=== PATIENT | male | born 1990 | race Caucasian/White ===

== ENCOUNTER 2018-05-28 09:15 | Emergency (ER) | payer SELFPAY ==
[2018-05-28 09:37] VITALS: BP 128/68
--- NOTE | 2018-05-28 09:40 | EDPHY ---
H & P Time Seen by Provider: 05/28/18 09:21 HPI/ROS: CHIEF COMPLAINT: Right hand pain post punching a dumpster HISTORY OF PRESENT ILLNESS: 28-year-old [id number] male with prior remote history of right radius ORIF states that he punched a dumpster last evening. Now complaining of right 5th metacarpal pain, swelling, violaceous discoloration. No paresthesia. No sensory motor deficit. Denies punching a person. PHYSICAL EXAM (Prior to examination, patient consented to physical exam, hands were washed and my usual and customary physical exam procedures followed) 1) GENERAL: Well-developed, well-nourished, alert and oriented. Appears to be in no acute distress. 2) HEAD: Normocephalic 3) HEENT: Pupils equal, round, reactive to light bilaterally. 4) LUNGS: Breathing comfortably. 5) MUSCULOSKELETAL: Tender to palpation 4th and 5th metacarpal with ecchymotic discoloration noted. No deformity no angulation. Normal cascading of digits. Soft compartments. Normal coloration. 6) SKIN: Intact. No evidence of fight bite injury . No tenting of skin 7) VASCULAR: pulses and cap refill present are brisk 8) NEUROLOGIC: Radial, ulnar, median nerve function intact with no deficits appreciated on exam DIFFERENTIAL DIAGNOSIS: in no particular order including but not limited to fracture, sprain, compartment syndrome Xray of the right hand and wrist interpreted by myself: 5th metacarpal fracture Procedure: Splint An Ortho Glass ulnar gutter splint was applied by ER machine set up technician. After application of the splint I returned and re-examined the patient. The splint was adequately immobilizing the joint and distal to the splint the patient's circulation and sensation were intact. Patient shows no signs of compartment syndrome. Was given orthopedic precautions. Smoking Status: Current some day smoker Constitutional: Initial Vital Signs Temperature (C) 36 C 05/28/18 09:19 Heart Rate 85 05/28/18 09:19 Respiratory Rate 16 05/28/18 09:19 Blood Pressure 128/68 H 05/28/18 09:19 O2 Sat (%) 97 05/28/18 09:19 O2 Delivery Mode Room Air Allergies/Adverse Reactions: amoxicillin Allergy (Verified 05/28/18 09:18) Home Medications: Medication Instructions Recorded Hydrocodone/APAP 5/325 [[place] 1 tab PO Q6 PRN #5 tab 05/28/18 5/325 (RX)] MDM/Departure - MDM Imaging Results: Imaging Impressions Hand X-Ray 05/28/18 09:21 Impression: Angulated, comminuted distal fifth metacarpal fractures. 2. Right Wrist, 3 views History: Pain post trauma last night Findings: Seen only on the oblique view is a possible mid navicular fracture. On the oblique view there is also a possible distal triquetral nondisplaced fracture. Also, on the oblique view there is a possible chip off either the distal hamate bone or proximal fifth metacarpal base. Other carpal bones are intact. Carpal alignment is anatomic. The comminuted distal fifth metacarpal fractures are again visible. Impression: Possibly 3 acute carpal fractures superimposed on the distal fifth metacarpal fractures. If clinically indicated consider noncontrast CT for further evaluation. Wrist X-Ray 05/28/18 09:22 Impression: Angulated, comminuted distal fifth metacarpal fractures. 2. Right Wrist, 3 views History: Pain post trauma last night Findings: Seen only on the oblique view is a possible mid navicular fracture. On the oblique view there is also a possible distal triquetral nondisplaced fracture. Also, on the oblique view there is a possible chip off either the distal hamate bone or proximal fifth metacarpal base. Other carpal bones are intact. Carpal alignment is anatomic. The comminuted distal fifth metacarpal fractures are again visible. Impression: Possibly 3 acute carpal fractures superimposed on the distal fifth metacarpal fractures. If clinically indicated consider noncontrast CT for further evaluation. Images reviewed myself ED Course/Re-evaluation: Patient is neurovascular intact no evidence of open fracture or septic arthritis or infection. He has been splinted in the ER. Given prescription for analgesia. Given my usual and customary orthopedic precautions instructions Recommend follow up with Orthopedics. Given orthopedic referral. All questions and concerns addressed by myself. Care of patient under supervision of secondary supervising physician Dr Hung Galan . - Depart Disposition: Home, Routine, Self-Care Clinical Impression: Closed fracture of 5th metacarpal Qualifiers: Encounter type: initial encounter Metacarpal location: neck Fracture alignment : displaced Laterality: right Qualified Code(s): S62.336A - Displaced fracture of neck of fifth metacarpal bone, right hand, initial encounter for closed fracture Condition: Good Instructions: Hydrocodone/Acetaminophen (By mouth), Boxer Fracture (ED) Additional Instructions: Return to the ER immediately if you experience discoloration, have worsening pain, numbness, tingling, or any other symptoms that concern you. If you received x-rays in the emergency department today, be advised, that ligamentous , tendon, muscular, and other non-bony injury cannot be fully ruled out. Try to keep your affected extremity elevated above the level of your chest, and keep cold packs on the affected area, for the next 48 hours. Prescriptions: Hydrocodone/APAP 5/325 [[place] 5/325 (RX)] 1 tab PO Q6 PRN #5 tab PRN Reason: Pain, Severe Referrals: Masood Mojica MD [Medical Doctor] - 2-3 days, call for appt.
== END 2018-05-28 10:00 | disposition home or self-care (01) ==
PROC: 2W3EX1Z Immobilization of Right Hand using Splint (ICD-10-PCS; principal; 2018-05-28)
DX: S62.336A Displaced fracture of neck of fifth metacarpal bone, right hand, initial encounter for closed fracture (principal); Z87.81 Personal history of (healed) traumatic fracture; W22.09XA Striking against other stationary object, initial encounter

== ENCOUNTER 2018-06-02 16:39 | Emergency (ER) | payer OTHER ==
[2018-06-02 16:46] VITALS: BP 143/97
--- NOTE | 2018-06-02 17:17 | EDPHY ---
H & P Stated Complaint: R arm fx f/u Time Seen by Provider: 06/02/18 17:16 HPI/ROS: Chief Complaint: Splint check HPI: The patient presents the ED for splint check. He was seen in the emergency department 5 days ago and diagnosed with a boxer's fracture. He was concerned about some discoloration in the area of the fracture which prompted his visit to the emergency department today. He is scheduled to follow up with Orthopedic surgery on June 06. REVIEW OF SYSTEMS: Neuro: no headache, numbness, weakness Musculoskeletal: as above Skin: As above Source: Patient - Personal History Current Tetanus/Diphtheria Vaccine: Unsure Current Tetanus Diphtheria and Acellular Pertussis (TDAP): Unsure - Medical/Surgical History Hx Asthma: No Hx Chronic Respiratory Disease: No Hx Diabetes: No Hx Cardiac Disease: No Hx Renal Disease: No Hx Cirrhosis: No Hx Alcoholism: No Hx HIV/AIDS: No Hx Splenectomy or Spleen Trauma: No Other PMH: R wrist surgery 2007 - Social History Smoking Status: Current some day smoker - Physical Exam Exam: General Appearance: Alert, no distress Right hand: Bruising ecchymosis noted along the ulnar aspect of the right hand , no significant deformity appreciated Neuro: Sensation intact to light touch throughout the right upper extremity Vascular: Normal capillary refill Constitutional: Initial Vital Signs Temperature (C) 36.9 C 06/02/18 16:45 Heart Rate 81 06/02/18 16:45 Respiratory Rate 16 06/02/18 16:45 Blood Pressure 143/97 H 06/02/18 16:45 O2 Sat (%) 95 06/02/18 16:45 O2 Delivery Mode Room Air Allergies/Adverse Reactions: amoxicillin Allergy (Verified 06/02/18 16:45) Home Medications: Medication Instructions Recorded Hydrocodone/APAP 5/325 [[place] 1 tab PO Q6 PRN #5 tab 05/28/18 5/325 (RX)] Medical Decision Making ED Course/Re-evaluation: Patient is an appropriate splint without evidence of a compartment syndrome or neurovascular compromise. He is advised to follow up Orthopedic surgery as scheduled. Departure - Departure Disposition: Home, Routine, Self-Care Clinical Impression: Fracture, metacarpal Qualifiers: Encounter type: initial encounter Metacarpal bone: fifth Fracture type: closed Metacarpal location: shaft Fracture alignment: nondisplaced Laterality: right Qualified Code(s): S62.356A - Nondisplaced fracture of shaft of fifth metacarpal bone, right hand, initial encounter for closed fracture Condition: Good Additional Instructions: Follow up with Orthopedic surgery as scheduled on June 06 Referrals: NONE *PRIMARY CARE P,. [Primary Care Provider] - As per Instructions
== END 2018-06-02 17:40 | disposition home or self-care (01) ==
DX: Z09 Encounter for follow-up examination after completed treatment for conditions other than malignant neoplasm (principal); S62.356A Nondisplaced fracture of shaft of fifth metacarpal bone, right hand, initial encounter for closed fracture